=== PATIENT | female | born 1945 | race Caucasian/White ===

== ENCOUNTER 2018-12-19 11:55 | Inpatient (IN) | payer MEDICAID, MEDICARE ==
[~2018-12-19] VITALS: Ht 162.6 cm; Wt 78.5 kg
--- NOTE | 2018-12-19 12:00 | NUR ---
BIB [facility] 37 FROM HOME,C/O BACK PAIN SINCE SHE HAD A TRIP/FALL 2 DAYS AGO. ALSO FELL 5 DAYS AGO. STATES PAIN IS 10/10. PT IS ALGERIAN-SPEAKING, AOX3, VSS, RR EVEN AND UNLABORED ON RA. AMBULATES WITH WALKER. DENIES SOB, DIZZINESS, N/V. SOME WEAKNESS. NO ACUTE DISTRESS NOTED. ON MONITOR AND MADE COMFORTABLE. SON AT BEDSIDE AND READY FOR EVAL.
[2018-12-19 13:40] LABS: BASOPHILS # (AUTO) 0.1 /CMM (0.0-0.2); BASOPHILS % (AUTO) 0.9 % (0.0-2.0); EOSINOPHILS % (AUTO) 0.4 % (0.0-6.0); HEMATOCRIT 40 % (33-45); HEMOGLOBIN 13.3 g/dL (11.5-14.8); LYMPHOCYTES % (AUTO) 21.2 % (20.0-44.0); MEAN CORPUSCULAR HGB CONC 34 g/dl (31.0-36.0); MEAN CORPUSCULAR VOLUME 84 fL (82-100); MONOCYTES # (AUTO) 0.7 /CMM (0.1-1.30); MONOCYTES % (AUTO) 7.8 % (2.0-12.0); NEUTROPHILS # (AUTO) 6.6 /CMM (1.8-8.9); NEUTROPHILS % (AUTO) 69.7 % (43.0-81.0); PLATELET COUNT (AUTO) 277 /CMM (150-450); RED BLOOD CELL COUNT(AUTO) 4.72 MIL/uL (4.0-5.2); WHITE BLOOD COUNT (AUTO) 9.4 K/uL (4.3-11.0)
[2018-12-19 13:49] LABS: CALCIUM, SERUM 11.3 mg/dL (8.5-10.1); CREATININE 0.6 mg/dL (0.6-1.3)
[2018-12-19 13:55] LABS: ALBUMIN 3.5 g/dL (3.4-5.0); BILIRUBIN,DIRECT 0.1 mg/dL (0.0-0.2); BILIRUBIN,TOTAL 0.3 mg/dL (0.2-1.0); TOTAL PROTEIN, SERUM 8.3 g/dL (6.4-8.2)
[2018-12-19] MEDS ORDERED: EMPA10TA PO (13:55)
[2018-12-19] MEDS ORDERED: TRAM50TA2 PO (13:55)
[2018-12-19] MEDS ORDERED: ASPI-1152 PO (13:55)
[2018-12-19] MEDS ORDERED: SITA1TAB6 PO (13:55)
[2018-12-19] MEDS ORDERED: PREG25CA19 PO (13:55)
[2018-12-19] MEDS ORDERED: MECL-102 PO (13:55)
[2018-12-19] MEDS ORDERED: METO-357 PO (13:55)
[2018-12-19] MEDS ORDERED: DONE5TAB34 PO (13:55)
[2018-12-19] MEDS ORDERED: AMLO10TA7 PO (13:55)
[2018-12-19] MEDS ORDERED: NAPR-1192 PO (13:55)
[2018-12-19] MEDS ORDERED: ICOS1CAP PO (13:55)
[2018-12-19] MEDS ORDERED: LOSA1TAB42 PO (13:55)
[2018-12-19] MEDS ORDERED: DICL100G16 TD (13:55)
[2018-12-19] MEDS ORDERED: HYDR-4076 PO (13:55)
[2018-12-19] MEDS ORDERED: ATOR10TA PO (13:55)
[2018-12-19] MEDS ORDERED: FURO40TA5 PO (13:55)
[2018-12-19] MEDS ORDERED: BENA20TA9 PO (13:55)
[2018-12-19] MEDS ORDERED: OMEP20CA11 PO (13:55)
--- NOTE | 2018-12-19 14:04 | NUR ---
PT RESTING COMFORTABLY IN BED. NO ACUTE DISTRESS NOTED. WILL CONT TO MONITOR.
--- NOTE | 2018-12-19 14:33 | NUR ---
URINE COLLECTED VIA STRAIGHT CATH PER PROTOCOL AND SENT TO STAT LAB
[2018-12-19 14:41] LABS: APPEARANCE,URINE Clear (CLEAR); BILIRUBIN,URINE SMALL (NEGATIVE); BLOOD, URINE Trace-intact Ery/uL (NEGATIVE); COLOR,URINE Yellow (YELLOW); KETONES,URINE 40 (NEGATIVE); LEUKOCYTE ESTERASE ,URINE Trace (NEGATIVE); NITRITE, URINE Positive (NEGATIVE); PH,URINE 5.5 (5.0-8.0); PROTEIN,URINE 30 mg/dl (NEGATIVE); UGLUCOSE >=1000 mg/dL (NEGATIVE); UROBILINOGEN,URINE 0.2 EU/dL (0.2)
--- NOTE | 2018-12-19 14:47 | NUR ---
[facility] BED 311-2
[2018-12-19 14:51] LABS: BACTERIA,URINE 1+ /HPF (None Seen); SQUAMOUS EPITHELIAL CELL,UR Few /HPF (None Seen)
--- NOTE | 2018-12-19 15:24 | NUR ---
REPORT GIVEN TO YOLANDA BRINK FOR 311-2 MS. ADM: ISACC WELLS, LYTIC BONE LESIONS
[2018-12-19 16:00] VITALS: BP 135/62
--- NOTE | 2018-12-19 16:06 | NUR ---
[facility]
--- NOTE | 2018-12-19 16:27 | NUR ---
MS RN RECEIVED A NEW ADMISSION FROM ER, 73 YEAR OLD FEMALE,CAME IN W/ METASTATIC SPINAL LESIONS , COMPLAIN OF BACK PAIN SECONDARY TO FALL,ALERT,ORIENTED X3,POLISH SPEAKING,WILL MONITOR PATIENT'S CONDITION.
--- NOTE | 2018-12-19 16:29 | NUR ---
MS GUERRERO TEXT [facility] FOR ORDERS,ALL NEEDS ATTENDED.
[2018-12-19] MEDS ORDERED: ZOLPIDEM TARTRATE 5 MG TABLET PO PRN (18:30)
[2018-12-19] MEDS ORDERED: ACETAMINOPHEN 325 MG TABLET PO PRN (18:30)
[2018-12-19] MEDS ORDERED: MAGNESIUM HYDROXIDE 30 ML UDC PO PRN (18:30)
[2018-12-19] MEDS ORDERED: ONDANSETRON HCL/PF 4 MG/2 ML VIAL IVP PRN (18:30)
[2018-12-19] MEDS: IV NS 0.9% 1,000 ML IV PRN (18:37)
[2018-12-19] MEDS: CEFTRIAXONE 1 G in IV D5W 50 ML IV SCH (19:01)
--- NOTE | 2018-12-19 19:06 | NUR ---
ms charisse gutiérrez wrote orders and carried out, on bed, no distress noted.
[2018-12-19 20:00] VITALS: BP 141/60
--- NOTE | 2018-12-19 20:20 | NUR ---
MS RN NOTES DR FOREMAN CAME IN AND SEEN PT. WITH NEW ORDERS TO INCREASE IVF TO NS @ 100 ML/HR. MD ALSO ORDERED LABS, US, CT AND MRI. ORDERS NOTED AND CARRIED OUT. WILL CONTINUE TO MONITOR.
[2018-12-19] MEDS ORDERED: PAMIDRONATE 90 MG in IV NS 0.9% 500 ML IV ONE (20:30)
--- NOTE | 2018-12-19 21:00 | NUR ---
MS RN NOTES CALLED RADIOLOGY FOR STAT MRI. STILL AWAITING FOR AUTHORIZATION FROM DR RAMOS PER RADIOLOGY. WILL CONTINUE TO MONITOR.
[2018-12-19] MEDS: ACETYLCYSTEINE 10% 3,000 MG/30 ML VIAL PO SCH (21:19)
[2018-12-19] MEDS: DEXAMETHASONE SOD PHOSPHATE 4 MG/ML VIAL IV SCH (21:19)
[2018-12-20] MEDS: DEXAMETHASONE SOD PHOSPHATE 4 MG/ML VIAL IV SCH ×3 (05:30→18:15)
[2018-12-20] MEDS: IV NS 0.9% 1,000 ML IV PRN ×2 (05:41→18:28)
--- NOTE | 2018-12-20 06:17 | NUR ---
MS RN NOTES AWAKE & RESPONSIVE. NOT IN ANY DISTRESS. NO SOB NOTED. DENIES ANY PAIN OR DISCOMFORT AT THIS TIME. WITH IVF INFUSING WELL. AM CARE DONE. MONITORED ACCORDINGLY. CALL LIGHT WITHIN REACH. BED IN LOWEST POSITION. SR UP X 3 WITH BED ALARM ON FOR SAFETY. WILL ENDORSE TO NEXT SHIFT.
[2018-12-20 07:08] LABS: BASOPHILS % (AUTO) 0.5 % (0.0-2.0); HEMATOCRIT 36 % (33-45); LYMPHOCYTES # (AUTO) 1.6 /CMM (0.8-4.8); LYMPHOCYTES % (AUTO) 21.4 % (20.0-44.0); MEAN CORPUSCULAR HGB CONC 34 g/dl (31.0-36.0); MEAN CORPUSCULAR VOLUME 84 fL (82-100); MONOCYTES # (AUTO) 0.3 /CMM (0.1-1.30); MONOCYTES % (AUTO) 4.2 % (2.0-12.0); NEUTROPHILS # (AUTO) 5.4 /CMM (1.8-8.9); NEUTROPHILS % (AUTO) 73.9 % (43.0-81.0); PLATELET COUNT (AUTO) 254 /CMM (150-450); RED BLOOD CELL COUNT(AUTO) 4.29 MIL/uL (4.0-5.2); WHITE BLOOD COUNT (AUTO) 7.3 K/uL (4.3-11.0)
[2018-12-20] MEDS ORDERED: OMEPRAZOLE 20 MG CAPSULE.DR PO SCH (07:30)
[2018-12-20 07:34] LABS: CHOLESTEROL 164 mg/dL (<200); HDL CHOLESTEROL 30 mg/dL (40-60); LDL 109 mg/dL (0-99); TRIGLYCERIDES 146 mg/dL (30-150)
[2018-12-20 07:41] LABS: CALCIUM, SERUM 9.8 mg/dL (8.5-10.1); CARBON DIOXIDE 21 mmol/L (21-32); CHLORIDE 105 mmol/L (98-107); CREATININE 0.5 mg/dL (0.6-1.3); GLUCOSE 179 mg/dL (74-106); PHOSPHORUS 2.9 mg/dL (2.5-4.9); SODIUM SERUM 138 mmol/L (136-145); UREA NITROGEN, BLOOD 10 mg/dL (7-18)
[2018-12-20 07:51] LABS: MAGNESIUM 1.5 mg/dL (1.8-2.4)
[2018-12-20 08:00] VITALS: BP 151/64
[2018-12-20] MEDS ORDERED: PANTOPRAZOLE 40 MG TABLET.DR PO ONE (08:00)
--- NOTE | 2018-12-20 08:10 | NUR ---
ms rn received on bed, awake,alert,oriented x3,not in any form of distress, respirations even and unlabored,no sob noted, lungs are diminish, abdomen soft,positive bowel sounds,denies pain at this time.
[2018-12-20] MEDS: ACETYLCYSTEINE 10% 3,000 MG/30 ML VIAL PO SCH ×2 (09:00→18:33)
[2018-12-20] MEDS: MECLIZINE HCL 25 MG TABLET PO SCH ×2 (09:00→18:17)
[2018-12-20] MEDS: PREGABALIN 25 MG CAPSULE PO SCH ×2 (09:00→18:16)
[2018-12-20] MEDS: DONEPEZIL 5 MG TABLET PO SCH ×2 (09:00→18:27)
[2018-12-20] MEDS: NAPROXEN 375 MG TABLET PO SCH ×2 (09:00→18:18)
--- NOTE | 2018-12-20 09:50 | NUR ---
ms rn patient on npo for ct abdomen, pelvis.
[2018-12-20] MEDS: Magnesium 1GM/D5W 100ML PREMIX 100 ML IV SCH ×2 (13:19→14:50)
--- NOTE | 2018-12-20 15:00 | NUR ---
ms rn mri and ct scan result received forwarded to dr. velasquez will come and see patient.
[2018-12-20 16:00] VITALS: BP 147/63
[2018-12-20] MEDS ORDERED: GADOTERIDOL 279.3 MG/ML VIAL IV ONE (16:08)
--- NOTE | 2018-12-20 17:39 | NUR ---
ms rn on bed, no distress noted.
[2018-12-20] MEDS: AMLODIPINE BESYLATE 10 MG TABLET PO SCH (18:16)
[2018-12-20] MEDS: METOPROLOL SUCCINATE 50 MG TAB.SR.24H PO SCH (18:16)
[2018-12-20] MEDS: BENAZEPRIL HCL 20 MG TABLET PO SCH (18:17)
[2018-12-20] MEDS: ASPIRIN EC 81 MG TABLET.DR PO SCH (18:17)
[2018-12-20] MEDS: CEFTRIAXONE 1 G in IV D5W 50 ML IV SCH (18:24)
[2018-12-20 20:00] VITALS: BP 139/61
[2018-12-20] MEDS ORDERED: HYDROCODONE/APAP 5/325MG 1 EACH TABLET PO PRN (21:30)
[2018-12-20] MEDS: MORPHINE SULFATE SR 15 MG TABLET.SA PO SCH (21:47)
[2018-12-21] MEDS: IV NS 0.9% 1,000 ML IV PRN (06:00)
[2018-12-21 06:06] LABS: CANCER AG, 15-3 106.3 U/mL (0.0-25.0)
[2018-12-21] MEDS ORDERED: PANTOPRAZOLE 40 MG TABLET.DR PO SCH (07:30)
[2018-12-21 07:45] LABS: BASOPHILS % (AUTO) 0.6 % (0.0-2.0); EOSINOPHILS % (AUTO) 0.3 % (0.0-6.0); HEMATOCRIT 37 % (33-45); HEMOGLOBIN 12.4 g/dL (11.5-14.8); LYMPHOCYTES # (AUTO) 0.6 /CMM (0.8-4.8); LYMPHOCYTES % (AUTO) 9.6 % (20.0-44.0); MEAN CORPUSCULAR HGB CONC 33 g/dl (31.0-36.0); MEAN CORPUSCULAR VOLUME 85 fL (82-100); MONOCYTES # (AUTO) 0.4 /CMM (0.1-1.30); MONOCYTES % (AUTO) 5.6 % (2.0-12.0); NEUTROPHILS # (AUTO) 5.4 /CMM (1.8-8.9); NEUTROPHILS % (AUTO) 83.9 % (43.0-81.0); PLATELET COUNT (AUTO) 253 /CMM (150-450); RED BLOOD CELL COUNT(AUTO) 4.43 MIL/uL (4.0-5.2); WHITE BLOOD COUNT (AUTO) 6.4 K/uL (4.3-11.0)
[2018-12-21 08:00] VITALS: BP 147/58
[2018-12-21 08:11] LABS: CALCIUM, SERUM 9.8 mg/dL (8.5-10.1); CARBON DIOXIDE 22 mmol/L (21-32); CHLORIDE 105 mmol/L (98-107); CREATININE 0.5 mg/dL (0.6-1.3); GLUCOSE 149 mg/dL (74-106); MAGNESIUM 1.9 mg/dL (1.8-2.4); POTASSIUM 3.8 mmol/L (3.5-5.1); SODIUM SERUM 138 mmol/L (136-145); UREA NITROGEN, BLOOD 11 mg/dL (7-18)
[2018-12-21] MEDS: PREGABALIN 25 MG CAPSULE PO SCH (08:43)
[2018-12-21] MEDS: DONEPEZIL 5 MG TABLET PO SCH (08:44)
[2018-12-21] MEDS: AMLODIPINE BESYLATE 10 MG TABLET PO SCH (08:44)
[2018-12-21] MEDS: MORPHINE SULFATE SR 15 MG TABLET.SA PO SCH (08:44)
[2018-12-21] MEDS: ASPIRIN EC 81 MG TABLET.DR PO SCH (08:45)
[2018-12-21] MEDS: MECLIZINE HCL 25 MG TABLET PO SCH (08:48)
[2018-12-21 09:00] VITALS: BP 147/58
[2018-12-21] MEDS: BENAZEPRIL HCL 20 MG TABLET PO SCH (09:00)
[2018-12-21] MEDS: METOPROLOL SUCCINATE 50 MG TAB.SR.24H PO SCH (09:00)
[2018-12-21] MEDS ORDERED: DEXAMETHASONE 4 MG TABLET PO SCH (09:00)
[2018-12-21] MEDS: NAPROXEN 375 MG TABLET PO SCH (09:24)
[2018-12-21 10:07] LABS: *SPE A/G RATIO 0.9 (0.7-1.7); *SPE ALPHA-1-GLOBULIN 0.3 g/dL (0.0-0.4); *SPE ALPHA-2-GLOBULIN 0.9 g/dL (0.4-1.0); *SPE BETA GLOBULIN 0.9 g/dL (0.7-1.3); *SPE GLOBULIN, TOTAL 3.5 g/dL (2.2-3.9); *SPE M-SPIKE 1.1 g/dL (Not Observed); *SPEGAMMA GLOBULIN 1.5 g/dL (0.4-1.8)
[2018-12-21] MEDS ORDERED: MORP30TA59 PO (11:14)
[2018-12-21] MEDS ORDERED: HYDR-4384 PO (11:14)
[2018-12-21] MEDS ORDERED: CEPH-570 PO (11:14)
[2018-12-21 16:00] VITALS: BP 113/57
[2018-12-21] MEDS ORDERED: LEVOFLOXACIN (500MG) 500 MG TABLET PO SCH (18:00)
== END 2018-12-21 16:15 | disposition home health service (06) | DRG 343 ==
LOC: ER 12:03 → MED 14:54
PROVIDERS: ADMIT Nurse Practitioner Acute Care; ATTEND Nurse Practitioner Acute Care
DX: C79.51 Secondary malignant neoplasm of bone (principal); C78.7 Secondary malignant neoplasm of liver and intrahepatic bile duct; I11.0 Hypertensive heart disease with heart failure; E83.52 Hypercalcemia; I50.9 Heart failure, unspecified; G95.20 Unspecified cord compression; C50.919 Malignant neoplasm of unspecified site of unspecified female breast; M16.0 Bilateral primary osteoarthritis of hip; N39.0 Urinary tract infection, site not specified; E11.9 Type 2 diabetes mellitus without complications; Z79.82 Long term (current) use of aspirin; Z79.84 Long term (current) use of oral hypoglycemic drugs; Z79.899 Other long term (current) drug therapy; F03.90 Unspecified dementia, unspecified severity, without behavioral disturbance, psychotic disturbance, mood disturbance, and anxiety; W19.XXXA Unspecified fall, initial encounter; Y92.009 Unspecified place in unspecified non-institutional (private) residence as the place of occurrence of the external cause; B96.20 Unspecified Escherichia coli [E. coli] as the cause of diseases classified elsewhere; I70.0 Atherosclerosis of aorta; E66.9 Obesity, unspecified; J98.11 Atelectasis
CPT/HCPCS: 36415; 71045-TC; 71270-TC; 72131-TC; 72157-TC; 72158-TC; 72170-TC; 74178; 76641-TC; 80048-TC; 80061-TC; 80076-TC; 81000-TC; 82378; 82784; 83690-TC; 83735-TC; 84100-TC; 84155; 84165; 85025-TC; 85610-TC; 85730-TC; 86300; 86304; 86334; 87081-TC; 87086-TC; 87186-TC; 93307-TC; 97110-TC; 97112-TC; 97530-TC; A9579; G0378; J0696; J1100; J2430; J3475; J7030; J7040; J7042; J7060; J8540; J8597